=== PATIENT | male | born 1955 | race Caucasian/White ===

== ENCOUNTER 2018-09-21 09:20 | Day surgery (SDC) ==
[2018-09-21] MEDS: BETADINE OPTH PREP OP PRN ×2 (10:12→10:40)
[2018-09-21] MEDS: TETRACAINE 0.5% UNIT-DOSE OP PRN ×3 (10:12→10:58)
[2018-09-21] MEDS: CYCLOGYL 2% OPTH OP PRN ×3 (10:13→10:23)
[2018-09-21] MEDS ORDERED: ZOFRAN 4 MG/2 ML IVP ONE (10:24)
[2018-09-21] MEDS ORDERED: LIDOCAINE 1%/PHENYLEPHRINE 1.5% BSS (SURGERY) INTRAOCULA ONE (10:24)
[2018-09-21] MEDS ORDERED: DEX-MOXI-KETOR OPTH INJ 1/0.5/0.4 MG/ML IO ONE (10:24)
[2018-09-21] MEDS ORDERED: LIDOCAINE 1% 20 ML MDV ID STA (10:24)
[2018-09-21] MEDS ORDERED: BSS WITH EPINEPHRINE OP ONE (10:24)
[2018-09-21 10:30] VITALS: TEMP 97.6
[2018-09-21] MEDS ORDERED: DIPRIVAN 20 ML VIAL IVP ONE (10:45)
[2018-09-21] MEDS ORDERED: VERSED ONE (10:45)
[2018-09-21] MEDS ORDERED: SUBLIMAZE ONE (10:45)
[2018-09-21] MEDS ORDERED: ZOFRAN 4 MG/2 ML ONE (10:45)
[2018-09-21 13:39] VITALS: BP 132/76
== END 2018-09-21 11:55 | disposition home or self-care (01) ==
LOC: SURG 09:20
PROVIDERS: ATTEND Ophthalmology
DX: H25.811 Combined forms of age-related cataract, right eye (principal)